=== PATIENT | female | born 1945 | race Caucasian/White ===

== ENCOUNTER 2019-08-24 16:49 | Outpatient (CLI) | payer OTHER, SELFPAY ==
--- NOTE | ~2019-08-24 | MR_ITS ---
EXAMINATION: MR knee LT wo con DATE: 08/24/2019 17:21 INDICATION: Left knee pain TECHNIQUE: Magnetic resonance imaging (MRI) of the left knee was performed without intravenous contra st. Sequences included coronal PD-weighted FSE, coronal PD-weighted FS FSE, sagittal T2-weighted FSE , sagittal PD-weighted FS FSE and axial PD weighted fat saturated FSE. COMPARISON: Left knee radiographs dated 08/12/2019 FINDINGS: Medial compartment: Medial meniscus is normal. Diffuse partial thickness cartilage loss with relatively smooth chondral s urface throughout the medial tibial plateau and weightbearing medial femoral condyle. There is mild s ubarticular edema along the posterior aspect of the medial tibial plateau suggesting otherwise indisc ernible chondral fissuring. Lateral compartment: Lateral meniscus is normal. Partial-thickness cartilage loss without degenerative subchondral changes along the posterior aspect of the lateral tibial plateau. Patellofemoral compartment: Partial-thickness cartilage loss throughout the patella with generally smooth chondral surface. There is a deep chondral fissure with tiny focus of subarticular edema at the medial aspect of the lateral patellar facet. Diffuse partial thickness cartilage loss with smooth chondral surface along the late ral trochlea. Ligaments and tendons: Anterior and posterior cruciate ligaments are normal. The medial collateral ligament and fibular eileen ateral ligament complex are normal. Patellar tendon is normal. Small enthesophytes along the anterior margin of the proximal patella. Mild distal quadriceps tendinopathy/enthesopathy without discrete te ar. The visualized medial and lateral hamstring tendons as well as the iliotibial band are normal. Fluid: Physiologic amount of fluid in the joint space. No loose osteochondral bodies identified. Prepatellar edema without discrete bursal fluid collection. Osseous/other: Bone alignment is normal. Irregular linear increased T2 signal with corresponding low signal on nonfa t saturated PD-weighted images extending obliquely from medial collateral across the anteroinferior a spect of the patella suspicious for healing nondisplaced fracture. Bone marrow signal is otherwise no rmal with no other fracture or pathologic marrow replacing process. IMPRESSION: 1. Likely healing nondisplaced fracture extending across the anteroinferior aspect of the patella. 2. 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 3. Mild distal quadriceps enthesopathy. Reviewed, dictated and finalized at location A. LE SALES EXPERT IMPRESSION: 1. Likely healing nondisplaced fracture extending across the anteroinferior asp ect of the patella. 2. 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 3. Mild distal quadriceps enthesopathy.
== END 2019-08-24 16:50 | disposition home or self-care (01) ==
PROVIDERS: Visit Provider Orthopaedic Surgery
DX: M25.562 Pain in left knee (principal); S82.092D Other fracture of left patella, subsequent encounter for closed fracture with routine healing; M17.12 Unilateral primary osteoarthritis, left knee; M94.262 Chondromalacia, left knee; M77.9 Enthesopathy, unspecified
CPT/HCPCS: 73721

== ENCOUNTER 2019-09-16 10:14 | Outpatient (CLI) | payer OTHER, SELFPAY ==
--- NOTE | ~2019-09-16 | MM_ITS ---
EXAMINATION: MM screening jenna LT w ludmila HISTORY: Screening mammogram. Previous right mastectomy for cancer. TECHNIQUE: Craniocaudal and mediolateral oblique 3-D tomosynthesis images were obtained and synthetic 2-D images were generated. CAD analysis was submitted and interpreted. COMPARISON: Comparison to multiple prior studies sequentially, with oldest reviewed study dated 08/03. BREAST PARENCHYMAL COMPOSITION: Breast composed of scattered areas of fibroglandular density. FINDINGS: There is no evidence of suspicious mass, calcification, or architectural distortion to sugg est malignancy in the left breast. There has been no suspicious interval change. IMPRESSION: 1. No mammographic evidence of malignancy. 2. Recommend routine screening mammography in one year. BI-RADS Category 1: Negative Reviewed, dictated and finalized at location A.
== END 2019-09-16 10:15 | disposition home or self-care (01) ==
PROVIDERS: Visit Provider Family Medicine
DX: Z12.31 Encounter for screening mammogram for malignant neoplasm of breast (principal)
CPT/HCPCS: 77063; 77067

== ENCOUNTER 2019-09-16 14:15 | Outpatient (CLI) | payer OTHER, SELFPAY ==
[2019-09-16 14:28] LABS: Basophils Percent Auto 0.4 % (0.2-1.2); Eosinophils Absolute Auto 0.5 K/mm3 (0-0.3); Eosinophils Percent Auto 6.9 % (0-4.4); Hematocrit 40.7 % (37.0-47.0); Hemoglobin 12.8 g/dL (12.0-15.0); Immature Granulocyte Absolute 0.02 K/mm3 (0.00-0.031); Immature Granulocyte Percent A 0.3 % (0-0.5); Lymphocytes Percent Auto 21.6 % (18.3-44.2); Mean Corpuscular HGB Conc 31.4 g/dl (32-36); Mean Corpuscular Hemoglobin 25.8 pg (26-34); Mean Corpuscular Volume 81.9 fl (80-100); Mean Platelet Volume 8.7 fl (7.4-10.4); Monocytes Absolute Auto 0.8 K/mm3 (0.1-0.6); Monocytes Percent Auto 9.8 % (2.6-8.5); Neutrophils Absolute Auto 4.8 K/mm3 (1.3-6.7); Platelet Count Result 311 k/mm3 (150-375); Red Blood Count 4.97 M/mm3 (4.2-5.4); Red Cell Distribution Width 12.5 % (11.5-14.5); White Blood Count 7.9 K/mm3 (4.5-10.0)
[2019-09-16 15:59] LABS: Alanine Aminotransferase 30 U/L (4-35); Albumin Level 4.6 g/dL (3.5-5.1); Alkaline Phosphatase 101 U/L (38-126); Aspartate Amino Transferase 36 U/L (14-36); Bilirubin,Total 0.2 mg/dL (0.2-1.3); Blood Urea Nitrogen 12 mg/dL (7-17); Calcium 9.6 mg/dL (8.4-10.2); Carbon Dioxide 29 mmol/L (22-30); Chloride 95 mmol/L (98-107); Estimated Glomerular Filt Rate > 60; Glucose 98 mg/dL (65-105); Potassium 4.5 mmol/L (3.4-5.0); Sodium 135 mmol/L (137-145)
[2019-09-18 04:22] LABS: CA 27.29 16 U/mL (<38)
== END 2019-09-16 14:16 | disposition home or self-care (01) ==
LOC: ANHLAB 14:20
PROVIDERS: Visit Provider Internal Medicine Hematology & Oncology
DX: C50.911 Malignant neoplasm of unspecified site of right female breast (principal); Z17.0 Estrogen receptor positive status [ER+]
CPT/HCPCS: 36415; 80053; 85025; 86300

== ENCOUNTER 2019-11-25 11:32 | Outpatient (CLI) | payer OTHER, SELFPAY ==
[2019-11-25 13:13] LABS: Alanine Aminotransferase 35 U/L (4-35); Aspartate Amino Transferase 49 U/L (14-36)
== END 2019-11-25 11:33 | disposition home or self-care (01) ==
LOC: ANHLAB 11:34
PROVIDERS: PCP Family Medicine; Visit Provider Podiatrist Foot & Ankle Surgery
DX: B35.1 Tinea unguium (principal)
CPT/HCPCS: 36415; 84450; 84460

== ENCOUNTER 2020-02-12 08:40 | Outpatient (CLI) | payer OTHER, SELFPAY ==
--- NOTE | ~2020-02-12 | DEXA_ITS ---
Bone Density Report Name: Ethel Chang Age: 74 Sex: Female Ethnicity: White Date of : 1945 Indication: osteopenia; height loss; cancer; Referring Provider: JOEL FELDMAN Study: Bone densitometry was performed. Exam Date: February 12, 2020 Accession number: [id number] Bone Density: Region BMD T-score Z-score Classification AP Spine (L1-L4) 0.897 -1.4 0.9 Osteopenia Femoral Neck (Left) 0.555 -2.7 -0.7 Osteoporosis Total Hip (Left) 0.839 -0.8 0.8 Normal Total Hip Bilateral Avg 0.804 -1.1 0.5 Osteopenia Femoral Neck (Right) 0.659 -1.7 0.2 Osteopenia Total Hip (Right) 0.768 -1.4 0.2 Osteopenia World Health Organization criteria for BMD impression classify patients as: Normal (T-score at or above -1.0), Osteopenia (T-score between -1.0 and -2.5), or Osteoporosis (T-score at or below -2.5). 10-year Fracture Risk: FRAX not reported because: Some T-score for Spine Total or Hip Total or Femoral Neck at or below -2.5 Previous Exams: Region Exam Age BMD T-score BMD Change BMD Change Date g/cm2 vs Baseline vs Previous AP Spine(L1-L4) 02/12/2020 74 0.897 -1.4 -0.190(-17.5%) -0.026(-2.8%)* 04/29/2016 71 0.923 -1.1 -0.164(-15.1%) -0.017(-1.8%)# 01/05/2013 67 0.940 -1.0 -0.147(-13.6%) -0.147(-13.6%) 03/20/2010 64 1.087 0.4 Total Hip(Left) 02/12/2020 74 0.839 -0.8 -0.110(-11.6%) -0.056(-6.2%)* 04/29/2016 71 0.895 -0.4 -0.055(-5.7%)# -0.048(-5.1%)# 01/05/2013 67 0.942 0.0 -0.007(-0.7%)# -0.007(-0.7%)# 03/20/2010 64 0.949 0.1 Total Hip(Right) 02/12/2020 74 0.768 -1.4 -0.087(-10.1%) -0.060(-7.2%)* 04/29/2016 71 0.828 -0.9 -0.027(-3.1%)# -0.035(-4.1%)# 01/05/2013 67 0.863 -0.6 0.008(1.0%)# 0.008(1.0%)# 03/20/2010 64 0.855 -0.7 *Denotes significance at 95% confidence level, LSC for AP Spine = 0.022 g/cm2, LSC for Total Hip = 0.027 g/cm2 Clinical Information Provided by Patient: Has used the following medications: Calcium Has the following medical conditions: Cancer Patient maximum height was 63 Menopause Age: 56 No regular weight bearing exercise Drinks caffeinated beverages Onset of menses at age 18 Number of children 3 Impression: The patient has osteoporosis, based on the Left Femoral Neck T-score. The BMD for the AP Spine(L1-L4) decreased, changing by -2.8% since the last DXA exam. The BMD for the Total Hip(Left) decreased, changing by -6.2% since the last DXA exam. The BMD f
== END 2020-02-12 08:41 | disposition home or self-care (01) ==
LOC: ANHIMG 08:55
PROVIDERS: PCP Family Medicine; Visit Provider Family Medicine
DX: M85.80 Other specified disorders of bone density and structure, unspecified site (principal); Z78.0 Asymptomatic menopausal state
CPT/HCPCS: 77080

== ENCOUNTER 2020-03-17 09:42 | Outpatient (CLI) | payer OTHER, SELFPAY ==
[2020-03-17 09:59] LABS: Basophils Percent Auto 0.5 % (0.2-1.2); Eosinophils Absolute Auto 0.3 K/mm3 (0-0.3); Hematocrit 39.3 % (37.0-47.0); Hemoglobin 12.6 g/dL (12.0-15.0); Immature Granulocyte Absolute 0.02 K/mm3 (0.00-0.031); Immature Granulocyte Percent A 0.3 % (0-0.5); Lymphocytes Absolute Auto 1.27 K/mm3 (0.9-3.2); Lymphocytes Percent Auto 20.5 % (18.3-44.2); Mean Corpuscular HGB Conc 32.1 g/dl (32-36); Mean Corpuscular Hemoglobin 25.6 pg (26-34); Mean Corpuscular Volume 79.7 fl (80-100); Mean Platelet Volume 8.6 fl (7.4-10.4); Monocytes Absolute Auto 0.7 K/mm3 (0.1-0.6); Neutrophils Absolute Auto 3.9 K/mm3 (1.3-6.7); Neutrophils Percent Auto 62.7 % (45.5-73.1); Platelet Count Result 245 k/mm3 (150-375); Red Blood Count 4.93 M/mm3 (4.2-5.4); White Blood Count 6.2 K/mm3 (4.5-10.0)
[2020-03-17 11:20] LABS: Alanine Aminotransferase 35 U/L (4-35); Albumin Level 4.6 g/dL (3.5-5.1); Alkaline Phosphatase 98 U/L (38-126); Anion Gap 10 mmol/L (8-16); Aspartate Amino Transferase 40 U/L (14-36); Bilirubin,Total 0.4 mg/dL (0.2-1.3); Blood Urea Nitrogen 13 mg/dL (7-17); Calcium 9.3 mg/dL (8.4-10.2); Carbon Dioxide 28 mmol/L (22-30); Chloride 96 mmol/L (98-107); Estimated Glomerular Filt Rate > 60; Glucose 93 mg/dL (65-105); Potassium 3.8 mmol/L (3.4-5.0); Sodium 134 mmol/L (137-145)
== END 2020-03-17 09:43 | disposition home or self-care (01) ==
PROVIDERS: PCP Family Medicine; Visit Provider Internal Medicine Hematology & Oncology
DX: C50.911 Malignant neoplasm of unspecified site of right female breast (principal); Z17.0 Estrogen receptor positive status [ER+]
CPT/HCPCS: 36415; 80053; 85025

== ENCOUNTER → 2020-08-17 13:24 | Outpatient (CLI) | payer OTHER, SELFPAY ==
--- NOTE | ~2020-08-17 | CT_ITS ---
EXAMINATION: CT lung screening EXAM DATE: 08/17/2020 14:03 INDICATION: Z87.891 - Personal history of nicotine dependence. Breast cancer. TECHNIQUE: Spiral low dose CT of the chest without contrast. Axial, coronal and sagittal images were reviewed. The dose-length product (DLP) for this examination was 92.36 mGy-cm. The exposure was ta ilored according to patient size (auto mA exposure control), and iterative reconstruction (ASIR) was used as additional dose reduction technique. There is no prior study for comparison. FINDINGS: Mild to moderate emphysema and hyperinflation. Basilar mild interlobular septal thickening , possible mild interstitial lung disease. No suspicious pulmonary nodules. Tracheobronchial tree is patent. There is no mediastinal, hilar or axillary lymphadenopathy. There are no pleural or gina cardial effusions. There is no pneumothorax. Heart normal in size. There is lipomatous hypertroph y of the interatrial septum. There is moderate coronary arterial calcification, arterial sclerosis. T here is small sliding gastroesophageal hiatal hernia. Upper abdomen is unremarkable. There is moder ate thoracic spondylosis without osteoblastic or osteolytic lesions identified. There are old right r ib fractures. Right axillary surgical clips. IMPRESSION: Lung-RADS category 1, negative (<1%chance of malignancy); recommend continued LDCT screen ing in 1 year. Reviewed, dictated and finalized at location B. DROMAT WORKER IMPRESSION: Lung-RADS category 1, negative (<1%chance of malignancy); recommend continued LDCT screening in 1 year.
== END ==
PROVIDERS: PCP Family Medicine; Visit Provider Family Medicine
DX: Z12.2 Encounter for screening for malignant neoplasm of respiratory organs (principal); Z87.891 Personal history of nicotine dependence
CPT/HCPCS: 71271

== ENCOUNTER 2020-09-01 09:04 | Outpatient (CLI) | payer OTHER, SELFPAY ==
--- NOTE | 2020-09-01 16:37 | P.PCNPFT_ITS ---
PFT Interpretation This is a pulmonary function test with pre and post-bronchodilator spirometry, plethysmography and diffusing capacity. The test was performed and results interpreted in accordance with the 2019 and 2005 ATS/ERS Task Force guidelines respectively using the Global Lung Function Initiative-2012 reference equations. Patient demonstrated good effort and c ooperation. Reproducibility criteria were met. The quality of the pre bronchodilator spirometry maneuver was Grade A and post bronchodilator spirometry maneuver was Grade A. Findings: Spirometry: There is decreased maximal expiratory airflow at all lung volumes with a concave expiratory flow tracing. The pre bronchodilator FVC is 1.84 L, 72% predicted. The pre bronchodilator FEV1 is 1.30 L, 66% predicted. The FEV1: FVC ratio is 71%. The post bronchodilator FVC is 1.78 L, representing a 4% decrease. The post bronchodilator FEV1 is 1.30 L, representing no change. Plethysmography: The total lung capacity is 3.46 L, 73% predicted. The functional residual capacity is 1.72 L, 64% predicted. The residual volume is 1.62 L, 76% predicted. Diffusing capacity: The absolute diffusion capacity is 11.7, 60% predicted. The diffusing capacity corrected for alveolar volume is 4.16, 96% predicted. Impression: There is a combined obstructive and restrictive ventilatory abnormality. There are no guidelines to assign the severity of obstruction and restriction with a combined abnormality. In my opinion, given the mildly concave expiratory flow tracing and mildly decreased FEV1:FVC ratio and mild restrictive abnormality I would state there is a mild obstructive abnormality and a mild restrictive abnormality resulting in a moderatley decreased FEV1. There is no significant improvement after inhaling a single dose of albuterol. The diffusing capacity is moderately decreased but normalizes when corrected for alveolar volume. There are no prior studies for comparison
== END 2020-09-01 09:05 | disposition home or self-care (01) ==
PROVIDERS: PCP Family Medicine; Visit Provider Family Medicine
DX: R06.2 Wheezing (principal); R94.2 Abnormal results of pulmonary function studies
CPT/HCPCS: 94060; 94726; 94729

== ENCOUNTER 2021-02-14 08:24 | Outpatient (CLI) | payer OTHER, SELFPAY ==
--- NOTE | ~2021-02-14 | MM_ITS ---
EXAMINATION: MM screening jenna LT w ludmila HISTORY: Screening left mammogram, history of right mastectomy. TECHNIQUE: Craniocaudal and mediolateral oblique 3-D tomosynthesis images were obtained and synthetic 2-D images were generated. CAD analysis was submitted and interpreted. COMPARISON: 09/16/2019, 04/07/2019, 02/28/2017 BREAST PARENCHYMAL COMPOSITION: There are scattered areas of fibroglandular density. FINDINGS: There is no evidence of suspicious mass, calcification, or architectural distortion to sugg est malignancy. There has been no suspicious interval change. IMPRESSION: 1. No mammographic evidence of malignancy. 2. Recommend routine screening mammography in one year. BI-RADS Category 1: Negative Reviewed, dictated and finalized at location A.
== END 2021-02-14 08:25 | disposition home or self-care (01) ==
LOC: ANHIMG 08:29
PROVIDERS: PCP Family Medicine; Visit Provider Family Medicine
DX: Z12.31 Encounter for screening mammogram for malignant neoplasm of breast (principal)
CPT/HCPCS: 77063; 77067

== ENCOUNTER 2021-08-22 10:42 | Outpatient (CLI) | payer OTHER, SELFPAY ==
--- NOTE | ~2021-08-22 | XR_ITS ---
XR lumbar spine min 4V DATE: 08/22/2021 11:23 INDICATION: Low back pain TECHNIQUE: AP, lateral, bilateral oblique and coned lateral lumbosacral views COMPARISON: None FINDINGS: There is diffuse osteopenia. There is prominent degenerative spurring in the lower thoracic spine. There is degenerative change at the apophyseal joints particularly L4-5 and L5-S1 with associated gra de 1 anterolisthesis at L4-5. There is moderately severe degenerative disc disease at L5-S1. No fracture or bone destruction is evident. The included lower thoracic and lumbar pedicles are intac t. The sacroiliac joints appear normal. There is extensive calcification of the abdominal aorta and common iliac arteries without apparent ab dominal aortic aneurysm. IMPRESSION: Osteopenia Degenerative changes Reviewed, dictated and finalized at location A. N YARN DRIER
--- NOTE | ~2021-08-22 | CT_ITS ---
EXAMINATION: CT lung screening DATE: 08/22/2021 11:14 INDICATION: Cough. Personal history of tobacco dependence. TECHNIQUE: Computed tomography (CT) of the chest was performed without intravenous contrast. The dose -length product was 140.41 mGy-cm. Automated exposure control and iterative reconstruction technique were employed. COMPARISON: CT dated 08/17/2020 FINDINGS: No significant pleural or pericardial effusion. There is atherosclerosis of the aorta and c oronary arteries. Heart size is normal. No thoracic lymphadenopathy. Upper abdomen is unremarkable. T here is emphysema. There are a few small 1-2 mm nodules in the left upper lobe, best seen on coronal reconstructions, likely benign. No endobronchial lesions. No pneumothorax. No focal airspace consolid ation. Mild thoracic spondylosis with accentuated kyphosis. There is a healed right clavicle fracture . IMPRESSION: 1. Lung-RADS category 2: Benign appearance or behavior. Continue annual screening with noncontrast lo w-dose chest CT in 12 months. Reviewed, dictated and finalized at location A. IDING JUDGE IMPRESSION: 1. Lung-RADS category 2: Benign appearance or behavior. Continue annual screeni ng with noncontrast low-dose chest CT in 12 months.
== END 2021-08-22 10:43 | disposition home or self-care (01) ==
PROVIDERS: PCP Family Medicine; Visit Provider Nurse Practitioner Gerontology
DX: Z12.2 Encounter for screening for malignant neoplasm of respiratory organs (principal); M54.50 Low back pain, unspecified; M85.88 Other specified disorders of bone density and structure, other site; J44.9 Chronic obstructive pulmonary disease, unspecified; Z87.891 Personal history of nicotine dependence
CPT/HCPCS: 71271; 72110

== ENCOUNTER 2021-10-15 16:41 | Outpatient (CLI) | payer OTHER, SELFPAY ==
--- NOTE | ~2021-10-15 | XR_ITS ---
XR knee RT min 4V DATE: 10/15/2021 17:08 INDICATION: Injury 2 weeks ago. Pain under patella. TECHNIQUE: 4 views COMPARISON: None FINDINGS: There is moderate loss of medial compartment joint space. Mild superior pole patellar enthesopathy at quadriceps tendon insertion. No fracture or dislocation. No radiopaque intra-articular loose body or chondrocalcinosis. There is diffuse osteopenia. Small suprapatellar knee joint effusion is suggested. IMPRESSION: Small knee joint effusion is suggested Moderate loss of medial compartment joint space height Reviewed, dictated and finalized at location A.
== END 2021-10-15 16:42 | disposition home or self-care (01) ==
LOC: ANHIMG 16:48
PROVIDERS: PCP Family Medicine; Visit Provider Nurse Practitioner Gerontology
DX: M25.569 Pain in unspecified knee (principal); W19.XXXA Unspecified fall, initial encounter; M25.461 Effusion, right knee
CPT/HCPCS: 73564

== ENCOUNTER 2022-07-31 09:30 | Outpatient (CLI) | payer OTHER, SELFPAY ==
--- NOTE | ~2022-07-31 | MM_ITS ---
EXAMINATION: MM screening jenna LT w ludmila HISTORY: Screening mammogram; status post right mastectomy TECHNIQUE: Craniocaudal and mediolateral oblique 3-D tomosynthesis images were obtained and synthetic 2-D images were generated. CAD analysis was submitted and interpreted. COMPARISON: 02/14/2021, 09/16/2019, 03/28/2018 left screening mammogram examinations BREAST PARENCHYMAL COMPOSITION: There are scattered areas of fibroglandular density. FINDINGS: There is no evidence of suspicious mass, calcification, or architectural distortion to sugg est malignancy in either breast. There has been no suspicious interval change. IMPRESSION: 1. No mammographic evidence of malignancy. 2. Recommend routine screening mammography in one year. BI-RADS Category 1: Negative Reviewed, dictated and finalized at location A. CAL FRONT DESK COORDINATOR
--- NOTE | ~2022-07-31 | DEXA_ITS ---
Bone Density Report Name: JUAN MIGUEL FRIED Age: 77 Sex: Female Ethnicity: White Date of : 1945 Indication: osteopenia; height loss; postmenopausal Referring Provider: KIERRA VASQUES Study: Bone densitometry was performed. Exam Date: July 31, 2022 Accession number: [id number] Bone Density: Region BMD T-score Z-score Classification AP Spine(L1-L4) 0.907 -1.3 1.1 Osteopenia Femoral Neck (Left) 0.562 -2.6 -0.5 Osteoporosis Total Hip (Left) 0.857 -0.7 1.1 Normal Femoral Neck (Right) 0.577 -2.5 -0.4 Osteoporosis Total Hip (Right) 0.805 -1.1 0.7 Osteopenia Total Hip Mean 0.831 -0.9 0.9 Normal World Health Organization criteria for BMD impression classify patients as: Normal (T-score at or above -1.0), Osteopenia (T-score between -1.0 and -2.5), or Osteoporosis (T-score at or below -2.5). 10-year Fracture Risk: FRAX not reported because: Some T-score for Spine Total or Hip Total or Femoral Neck at or below -2.5 Previous Exams: Region Exam Age BMD T-score BMD Change BMD Change Date g/cm2 vs Baseline vs Previous AP Spine (L1-L4) 07/31/2022 77 0.907 -1.3 -0.033 (-3.5%) 0.010 (1.1%) 02/12/2020 74 0.897 -1.4 -0.043 (-4.5%) -0.026 (-2.8%) 04/29/2016 71 0.923 -1.1 -0.017 (-1.8%) -0.017 (-1.8%) 01/05/2013 67 0.940 -1.0 Total Hip(Left) 07/31/2022 77 0.857 -0.7 -0.086 (-9.1%) 0.018 (2.1%) 02/12/2020 74 0.839 -0.8 -0.104 (-11.0% -0.056 (-6.2%) 04/29/2016 71 0.895 -0.4 -0.048 (-5.1%) -0.048 (-5.1%) 01/05/2013 67 0.942 0.0 Total Hip(Right) 07/31/2022 77 0.805 -1.1 -0.058 (-6.7%) 0.037 (4.8%)* 02/12/2020 74 0.768 -1.4 -0.095 (-11.0% -0.060 (-7.2%) 04/29/2016 71 0.828 -0.9 -0.035 (-4.1%) -0.035 (-4.1%) 01/05/2013 67 0.863 -0.6 *Denotes significance at 95% confidence level, LSC for AP Spine = 0.022 g/cm2, LSC for Total Hip = 0.027 g/cm2 # Denotes dissimilar scan types or analysis methods Clinical Information Provided by Patient: Has used the following medications: Vitamin D, Calcium Patient maximum height was 64 No regular weight bearing exercise Drinks caffeinated beverages Onset of menses at age 18 Number of children 3 Impression: The patient has osteoporosis, based on the Left Femoral Neck T-score. No significant bone loss was observed. Discussion: INCREASED RISK OF FRACTURE. BONE DENSITY IS UNDESIRABLY LOW AT ONE OR MORE SKELETAL SITES, CONSISTENT WITH PO
== END 2022-07-31 09:31 | disposition home or self-care (01) ==
LOC: ANHIMG 09:33
PROVIDERS: PCP Family Medicine; Visit Provider Physician Assistant
DX: Z12.31 Encounter for screening mammogram for malignant neoplasm of breast (principal); Z78.0 Asymptomatic menopausal state; M85.89 Other specified disorders of bone density and structure, multiple sites; M81.0 Age-related osteoporosis without current pathological fracture
CPT/HCPCS: 77063; 77067; 77080

== ENCOUNTER 2022-08-26 14:58 | Outpatient (CLI) | payer OTHER, SELFPAY ==
--- NOTE | ~2022-08-26 | CT_ITS ---
EXAMINATION: CT lung screening DATE: 08/26/2022 15:22 INDICATION: CT lung screen TECHNIQUE: Computed tomography (CT) of the chest was performed without intravenous contrast. Addition al 3D reconstructions utilizing coronal maximum intensity projection (MIP) were performed. Automated exposure control and iterative reconstruction technique were employed. The dose-length product was 13 8.73 mGy-cm. COMPARISON: 07/25/2021 FINDINGS: Unchanged mild discoid atelectasis/scarring the anterior segment of the right upper lobe. No interval change in a couple 1-2 mm nodules in the left upper lobe. No new or enlarging pulmonary nodules iden tified. No pneumonia, pulmonary edema or pleural effusion. Heart size is normal. Atherosclerotic gerardo nary artery calcification. No pericardial effusion. Thoracic aorta is normal in caliber. No pathologi saba enlarged thoracic lymphadenopathy. Status post right mastectomy with surgical clips right axill leonor lymph node dissection at the right axilla. Small sliding-type hiatal hernia. Moderate thoracic sp ondylosis with mild kyphosis. Chronic mild anterior wedging of a few mid thoracic vertebral bodies. O ld healed right clavicle fracture. IMPRESSION: 1. Lung-RADS category 2: Benign appearance or behavior. Continue annual screening with noncontrast lo w-dose chest CT in 12 months. Reviewed, dictated and finalized at location A. X RAY PHYSICIAN IMPRESSION: 1. Lung-RADS category 2: Benign appearance or behavior. Continue annual screeni ng with noncontrast low-dose chest CT in 12 months.
== END 2022-08-26 14:59 | disposition home or self-care (01) ==
PROVIDERS: PCP Family Medicine; Visit Provider Nurse Practitioner Gerontology
DX: Z12.2 Encounter for screening for malignant neoplasm of respiratory organs (principal); Z87.891 Personal history of nicotine dependence
CPT/HCPCS: 71271

== ENCOUNTER 2022-09-16 08:49 | Outpatient (CLI) | payer OTHER, SELFPAY ==
[2022-09-16 10:26] LABS: Basophils Percent Auto 0.6 % (0.2-1.2); Eosinophils Absolute Auto 0.4 K/mm3 (0-0.3); Eosinophils Percent Auto 5.6 % (0-4.4); Hematocrit 37.2 % (37.0-47.0); Hemoglobin 11.6 g/dL (12.0-15.0); Immature Granulocyte Absolute 0.02 K/mm3 (0.00-0.031); Immature Granulocyte Percent A 0.3 % (0-0.5); Lymphocytes Absolute Auto 1.36 K/mm3 (0.9-3.2); Lymphocytes Percent Auto 21.8 % (18.3-44.2); Mean Corpuscular HGB Conc 31.2 g/dl (32-36); Mean Corpuscular Volume 83.2 fl (80-100); Mean Platelet Volume 9.5 fl (7.4-10.4); Monocytes Absolute Auto 0.7 K/mm3 (0.1-0.6); Monocytes Percent Auto 10.6 % (2.6-8.5); Neutrophils Absolute Auto 3.8 K/mm3 (1.3-6.7); Neutrophils Percent Auto 61.1 % (45.5-73.1); Platelet Count Result 273 k/mm3 (150-375); Red Blood Count 4.47 M/mm3 (4.2-5.4); Red Cell Distribution Width 13.3 % (11.5-14.5); White Blood Count 6.2 K/mm3 (4.5-10.0)
[2022-09-16 10:37] LABS: Alanine Aminotransferase 33 U/L (6-35); Albumin Level 4.7 g/dL (3.5-5.1); Alkaline Phosphatase 76 U/L (38-126); Anion Gap 7 mmol/L (8-16); Aspartate Amino Transferase 35 U/L (14-36); Bilirubin,Total 0.5 mg/dL (0.2-1.3); Blood Urea Nitrogen 14 mg/dL (7-17); Calcium 9.4 mg/dL (8.4-10.2); Carbon Dioxide 32 mmol/L (22-30); Chloride 97 mmol/L (98-107); Cholesterol 163 mg/dL (0-200); Estimated Glomerular Filt Rate > 60; Glucose 92 mg/dL (65-110); HDL Direct 45 mg/dL; Potassium 4.4 mmol/L (3.4-5.0); Sodium 136 mmol/L (137-145); Triglycerides 131 mg/dL (<150)
[2022-09-16 10:48] LABS: LDL Cholesterol Direct 75 mg/dL
== END 2022-09-16 08:50 | disposition home or self-care (01) ==
LOC: ANHLAB 08:51
PROVIDERS: PCP Family Medicine; Visit Provider Physician Assistant
DX: E78.2 Mixed hyperlipidemia (principal); I10 Essential (primary) hypertension
CPT/HCPCS: 36415; 80053; 80061; 85025

== ENCOUNTER 2023-08-17 09:45 | Emergency (ER) | payer OTHER, SELFPAY ==
--- NOTE | ~2023-08-17 | XR_ITS ---
XR foot LT min 3V, XR ankle LT min 3V 08/17/2023 10:21 (accession [id number]), 08/17/2023 10:20 (accession [id number]) Indication: Left ankle and foot pain after injury Procedure: 4 views left foot and 4 views left ankle Comparison: No prior studies for comparison. Findings: There is a fracture proximal aspect of the fifth metatarsal with adjacent soft tissue swell ing. Osteopenia. Mild polyarticular osteoarthritis. No foreign bodies. Lisfranc joint intact. There a re small degenerative calcaneal enthesophytes. There is a small avulsion fracture anterior superior m argin of the talus. Impression: 1: Fracture proximal base of the left fifth metatarsal. 2: Avulsion fracture anterior superior margin of the talus, best seen on lateral view. Reviewed, dictated and finalized at location A. RINTENDENT OF GENERATION Impression: 1: Fracture proximal base of the left fifth metatarsal. 2: Avulsion fracture anterior superior margin of the talus, best seen on latera l view. Impression: 1: Fracture proximal base of the left fifth metatarsal. 2: Avulsion fracture anterior superior margin of the talus, best seen on latera l view.
--- NOTE | 2023-08-17 10:02 | ED.LOWEXIN ---
HPI - Extremity Injury (Lower) General Chief Complaint: Extremity Injury, Lower Stated Complaint: FALL/L FOOT INJURY Time Seen by Provider: 08/17/23 10:02 Source: patient Mode of arrival: ambulatory Limitations: no limitations History of Present Illness HPI Narrative: Ethel is a 78-year-old female patient presenting to the clinic today with complaints of a left foot/ankle injury after rolling her ankle last night when getting out of bed to go the bathroom. She reports she is having pain to the lateral ankle and foot. Pain is worse with ambulation. Related Data Home Medications Medication Instructions Recorded Confirmed aspirin 81 mg tablet,delayed 81 mg PO DAILY 08/13/19 09/12/22 release (Adult Aspirin Regimen) calcium carbonate-vitamin D3 PO 08/13/19 09/12/22 cetirizine [Zyrtec] PO 08/13/19 09/12/22 guar gum [Benefiber (guar gum)] PO 08/13/19 09/12/22 lactobacillus combination no.8 PO 08/13/19 09/12/22 [Adult Probiotic] magnesium 250 mg tablet 250 mg PO DAILY 08/13/19 09/12/22 melatonin 10 mg capsule PO 08/13/19 09/12/22 multivitamin 1 tablet PO DAILY 08/13/19 09/12/22 omega-3 fatty acids 1,000 mg 1,000 mg PO DAILY 08/13/19 09/12/22 capsule (Fish Oil Concentrate) vit C-E-zinc [id number] PO 08/13/19 09/12/22 [[facility]] Allergies Allergy/AdvReac Type Severity Reaction Status Date / Time No Known Allergies Allergy Verified 08/17/23 10:01 Review of Systems Review of Systems: Pertinent positives per HPI. Patient denies any fever, chills, rash, headache, visual changes, dizziness, cough, runny nose, sore throat, shortness of breath, chest pain, palpitations, nausea, vomiting, diarrhea, constipation, abdominal pain, or any urinary issues. [facility] Past Medical History Medical History Carotid atherosclerosis Cerebral atherosclerosis Chronic GERD COPD (chronic obstructive pulmonary disease) Dizziness Essential (primary) hypertension History of breast cancer Meniere's disease of both ears Mixed hyperlipidemia Neuropathy Osteoporosis Peripheral neuropathy Seasonal allergies Vertigo Vision abnormalities Surgical History Surgical History History of right total mastectomy History of tubal ligation 1974 Family History Family History Sibling Acute myocardial infarction Hypertension Other Family history of cardiovascular disease Social History Social History Social History: Smoking packs per day: 2.5 Smoking cigarettes per day: 50.0 Years smoked: 40 Smoking pack-years: 100.00 Smoking status: Never smoker Tobacco type: cigarettes Second hand tobacco smoke exposure: No Smoking end date: 06/23/04 Alcohol intake: never Substance use: never Substance use type: does not use Living arrangements: with family Occupation/Education: retired Gender identity (if verbalized by the patient): Female Sexual Orientation (if Verbalized by the Patient): Straight or Heterosexual Comments At the time of my signature, I reviewed and agree with the nursing past medical, surgical, social, and family history. There is no relevant family history pertinent to the patient complaint. Exam Narrative: General: Well-developed, well nourished, in no apparent distress Head: Normocephalic, atraumatic. Cardio: Regular rate and rhythm, s1 and s2 normal, no murmur appreciated. Resp: Clear to auscultation bilaterally, no rhonchi, rales, wheezing or rubs. Musculoskeletal: No deformity, tender to palpation over the lateral left ankle and over the lateral 5th and 4th metatarsal, bruising noted along the left 5th metatarsal and the left lateral ankle, pain with dorsal and plantar flexion against resistance, muscle strength strong an
[2023-08-17 10:07] VITALS: BP 140/70; PULSE 78; RESP 16; TEMP 36.4; O2SAT 98
== END 2023-08-17 11:09 | disposition home or self-care (01) ==
PROVIDERS: Emergency Provider Nurse Practitioner Family; PCP Family Medicine
DX: S92.155A Nondisplaced avulsion fracture (chip fracture) of left talus, initial encounter for closed fracture (principal); S92.355A Nondisplaced fracture of fifth metatarsal bone, left foot, initial encounter for closed fracture; X50.9XXA Other and unspecified overexertion or strenuous movements or postures, initial encounter; I67.2 Cerebral atherosclerosis; J44.9 Chronic obstructive pulmonary disease, unspecified; I10 Essential (primary) hypertension; E78.2 Mixed hyperlipidemia; M81.0 Age-related osteoporosis without current pathological fracture; G62.9 Polyneuropathy, unspecified; Z85.3 Personal history of malignant neoplasm of breast; K21.9 Gastro-esophageal reflux disease without esophagitis; Z90.11 Acquired absence of right breast and nipple; Z87.891 Personal history of nicotine dependence
CPT/HCPCS: 29515; 73610; 73630; 99214; G0463

== ENCOUNTER 2024-04-03 09:26 | Outpatient (CLI) | payer OTHER, SELFPAY ==
[2024-04-03 09:59] LABS: Basophils Percent Auto 0.5 % (0.2-1.2); Eosinophils Absolute Auto 0.5 K/mm3 (0-0.3); Eosinophils Percent Auto 8.3 % (0-4.4); Hematocrit 39.8 % (37.0-47.0); Immature Granulocyte Absolute 0.02 K/mm3 (0.00-0.031); Immature Granulocyte Percent A 0.3 % (0-0.5); Lymphocytes Absolute Auto 1.62 K/mm3 (0.9-3.2); Lymphocytes Percent Auto 24.8 % (18.3-44.2); Mean Corpuscular HGB Conc 30.2 g/dl (32-36); Mean Corpuscular Hemoglobin 25.6 pg (26-34); Mean Corpuscular Volume 84.9 fl (80-100); Mean Platelet Volume 9.2 fl (7.4-10.4); Monocytes Absolute Auto 0.7 K/mm3 (0.1-0.6); Monocytes Percent Auto 10.3 % (2.6-8.5); Neutrophils Absolute Auto 3.7 K/mm3 (1.3-6.7); Neutrophils Percent Auto 55.8 % (45.5-73.1); Platelet Count Result 288 k/mm3 (150-375); Red Blood Count 4.69 M/mm3 (4.2-5.4); Red Cell Distribution Width 13.9 % (11.5-14.5); White Blood Count 6.5 K/mm3 (4.5-10.0)
[2024-04-03 10:59] LABS: Alanine Aminotransferase 33 U/L (6-35); Albumin Level 4.5 g/dL (3.5-5.1); Alkaline Phosphatase 81 U/L (38-126); Anion Gap 10 mmol/L (4-12); Aspartate Amino Transferase 45 U/L (14-36); Bilirubin,Total 0.7 mg/dL (0.2-1.3); Blood Urea Nitrogen 18 mg/dL (7-17); Calcium 9.8 mg/dL (8.4-10.2); Carbon Dioxide 28 mmol/L (22-30); Chloride 100 mmol/L (98-107); Cholesterol 176 mg/dL (0-200); Estimated Glomerular Filt Rate > 60; Glucose 112 mg/dL (65-110); HDL Direct 40 mg/dL; Potassium 4.5 mmol/L (3.4-5.0); Sodium 138 mmol/L (137-145); Triglycerides 155 mg/dL (<150)
[2024-04-03 11:09] LABS: LDL Cholesterol Direct 82 mg/dL
== END 2024-04-03 09:27 | disposition home or self-care (01) ==
LOC: ANHLAB 09:29
PROVIDERS: PCP Family Medicine; Visit Provider Physician Assistant
DX: G62.9 Polyneuropathy, unspecified (principal); I10 Essential (primary) hypertension; E78.2 Mixed hyperlipidemia; K21.9 Gastro-esophageal reflux disease without esophagitis; I65.29 Occlusion and stenosis of unspecified carotid artery
CPT/HCPCS: 36415; 80053; 80061; 85025

== ENCOUNTER 2024-08-19 16:38 | Outpatient (CLI) | payer OTHER, SELFPAY ==
[2024-08-19 17:44] LABS: Alanine Aminotransferase 30 U/L (6-35); Aspartate Amino Transferase 46 U/L (14-36)
== END 2024-08-19 16:39 | disposition home or self-care (01) ==
LOC: ANHLAB 16:40
PROVIDERS: PCP Family Medicine; Visit Provider Podiatrist Foot & Ankle Surgery
DX: B35.1 Tinea unguium (principal)
CPT/HCPCS: 36415; 84450; 84460

== ENCOUNTER 2024-08-26 07:40 | Outpatient (CLI) | payer OTHER, SELFPAY ==
--- OUTSIDE RECORDS SUMMARY | 2024-08-26 07:46 | XMS_ITS | Clinical Summary ---
Author Organization [facility] Hattie Noble Address [address] [place] [address] Care Team Providers Care Collections Analyst Name Role Phone Carla Campbell MD Primary Care Provider +1- [phone] Allergies No known active allergies Medications lovastatin (MEVACOR) 40 mg tablet Take 40 mg by mouth daily with supper. Active sertraline (ZOLOFT) 50 mg tablet Take 50 mg by mouth daily. Active gabapentin (NEURONTIN) 300 mg capsule Take 300 mg by mouth 3 times daily. Active triamterene-hyd roCHLOROthiazid e (MAXZIDE) 75-50 mg tablet Take 1 Tablet by mouth daily. Active hydrocortisone (HYTONE) 2.5 % Cream Apply to affected area 2 times daily. Active raNITIdine (ZANTAC) 150 mg tablet Take 150 mg by mouth 2 times daily. Active melatonin 5 mg Tablet Take 10 mg by mouth nightly as needed. Active collagenase (SANTYL) 250 unit/gram Ointment Apply 1,000 Grams to affected area daily. Active omeprazole (PriLOSEC) 20 mg Capsule, Delayed Release(E.C.) Take 20 mg by mouth daily. Active meclizine (ANTIVERT) 25 mg tablet Take 25 mg by mouth 3 times daily as needed for Dizziness. Active cetirizine (ZyrTEC) 10 mg tablet Take 10 mg by mouth daily. Active calcium as carbonate (CORAL CALCIUM) 1,000 mg (390 mg elemental) Tablet Take 750 mg by mouth. Active aspirin (ECOTRIN EC) 81 mg Tablet, Delayed Release (E.C.) Take 81 mg by mouth daily. Active acetaminophen (TYLENOL) 500 mg tablet Take 500 mg by mouth every 6 hours as needed. Active vitamin A-vitamin C-vitamin E (OCUVITE) Tablet Take 1 Tablet by mouth daily. Active fish oil-omega-3 fatty acids 340-1,000 mg Capsule Take 1 Capsule by mouth daily. Active guar gum (BENEFIBER) Packet Take 1 Packet by mouth daily. Active Saccharomyces boulardii (FLORASTOR) 250 mg Capsule Take by mouth. Active magnesium oxide 500 mg Capsule Take 250 mg by mouth daily. Active Active Problems Problem Noted Date Diagnosed Date History of invasive breast cancer 09/16/2019 Family History Medical History Relation Name Comments Heart Disease Brother 1 Heart Disease Brother 2 Heart Disease Father Heart Disease Mother Relation Name Status Comments Brother 1 Alive Brother 2 Alive Daughter Alive Father Mother Sister 1 Alive Sister 2 Alive Sister 3 Alive Son 1 Alive Son 2 Alive Social History Tobacco Use Types Packs/Day Years Used Date Smoking Tobacco: Former Cigarettes 2.5 25 0 07/04/1979 - 07/04/2004 Smokeless Tobacco: Never Tobacco Cessation:Counseling Given: No Alcohol Use Standard Drinks/Week Comments Never 0 (1 standard drink = 0.6 oz pur e alcohol) Comments No Sex and Gender Information Value Date Recorded Sex Assigned at Not on file Legal Sex Female 12:25 PM CDT Gender Identity Not on file Sexual Orientation Not on file Last Filed Vital Signs Vital Sign Reading Time Taken Comments Blood Pressure 97/58 03/17/2020 9:10 AM CDT Pulse 77 03/17/2020 9:10 AM CDT Temperature 36.8 C (98.2 F) 03/17/2020 9:10 AM CDT Respiratory Rate - - Oxygen Saturation 98% 03/17/2020 9:10 AM CDT Inhaled Oxygen Concentration - - Weight 85.1 kg (187 lb 9.6 oz) 03/17/2020 9:10 A M CDT Height 158.8 cm (5' 2.5 ) 03/17/2020 9:10 AM CDT Body Mass Index 33.77 03/17/2020 9:10 AM CDT Plan of Treatment Health Maintenance Due Date Last Done Comments DTAP/TDAP/TD VACCINES (1 - Tdap) 1966 PNEUMOCOCCAL VACCINE 50+ YEARS (1 of 1 - PCV) 04/23/19 97 ZOSTER VACCINE (1 of 2) 1997 OSTEOPOROSIS SCREENING 2012 RSV VACCINE (60+ or ) (1 - 1-dose 75+ series) 2022 INFLUENZA VACCINE (#1) 2024 Care Teams Collections Analyst Relationship Specialty Start Date End Date Carla Campbell MD PCP - General Family Practice 09/06/19
[2024-08-26 08:10] LABS: Hematocrit 38.9 % (37.0-47.0); Mean Corpuscular HGB Conc 30.8 g/dl (32-36); Mean Corpuscular Hemoglobin 26.1 pg (26-34); Mean Corpuscular Volume 84.7 fl (80-100); Mean Platelet Volume 9.6 fl (7.4-10.4); Platelet Count Result 288 k/mm3 (150-375); Red Blood Count 4.59 M/mm3 (4.2-5.4); Red Cell Distribution Width 13.2 % (11.5-14.5); White Blood Count 6.2 K/mm3 (4.5-10.0)
[2024-08-26 08:14] LABS: Add Urine Microscopic? NO; Appearance Urine Clear (Clear); Bilirubin Urine Negative (Negative); Blood Urine Negative (Negative); Color Urine Yellow (Yellow); Glucose Urine UA Negative (Negative); Ketones Urine Negative (Negative); Leukocyte Esterase Ur Negative LEU/UL (Negative); Nitrate Urine Negative (Negative); Protein Urine Negative (Negative); Urobilinogen Urine 0.2 mg/dL (<2.0)
[2024-08-26 08:38] LABS: Hemoglobin A1C 5.7 % (<5.7)
[2024-08-26 10:57] LABS: Alanine Aminotransferase 29 U/L (6-35); Albumin Level 4.7 g/dL (3.5-5.1); Alkaline Phosphatase 69 U/L (38-126); Anion Gap 11 mmol/L (4-12); Aspartate Amino Transferase 44 U/L (14-36); Bilirubin,Total 0.6 mg/dL (0.2-1.3); Blood Urea Nitrogen 11 mg/dL (7-17); Calcium 9.5 mg/dL (8.4-10.2); Carbon Dioxide 28 mmol/L (22-30); Chloride 101 mmol/L (98-107); Cholesterol 147 mg/dL (0-200); Estimated Glomerular Filt Rate > 60; Glucose 110 mg/dL (65-110); HDL Direct 41 mg/dL; Potassium 4.2 mmol/L (3.4-5.0); Sodium 140 mmol/L (137-145); Triglycerides 104 mg/dL (<150)
[2024-08-26 11:08] LABS: LDL Cholesterol Direct 71 mg/dL
== END 2024-08-26 07:41 | disposition home or self-care (01) ==
LOC: ANHLAB 07:41
PROVIDERS: PCP Family Medicine; Visit Provider Family Medicine
DX: E78.2 Mixed hyperlipidemia (principal); I10 Essential (primary) hypertension; E78.5 Hyperlipidemia, unspecified; R53.83 Other fatigue; R73.01 Impaired fasting glucose
CPT/HCPCS: 36415; 80053; 80061; 81003; 83036; 84443; 85027

== ENCOUNTER 2024-09-08 09:33 | Outpatient (CLI) | payer OTHER, SELFPAY ==
--- NOTE | ~2024-09-08 | MM_ITS ---
EXAMINATION: MM screening jenna LT w ludmila HISTORY: Screening TECHNIQUE: Craniocaudal and mediolateral oblique 3-D tomosynthesis images were obtained and synthetic 2-D images were generated. CAD analysis was submitted and interpreted. COMPARISON: Comparison to multiple prior studies sequentially, with oldest reviewed study dated 01/10. BREAST PARENCHYMAL COMPOSITION: Not dense: There are scattered areas of fibroglandular density. FINDINGS: There is no evidence of suspicious mass, calcification, or architectural distortion to sugg est malignancy in either breast. There has been no suspicious interval change. IMPRESSION: 1. No mammographic evidence of malignancy. 2. Recommend routine screening mammography in one year. BI-RADS Category 1: Negative Reviewed, dictated and finalized at location B.
--- OUTSIDE RECORDS SUMMARY | 2024-09-08 10:39 | XMS_ITS | Clinical Summary ---
Author Organization [facility] (Formerly [facility] Hattie Noble Address [address] [place] [address] Care Team Providers Care [employer] Merchandising Coordinator Name Role Phone Carla Campbell MD Primary Care Provider +1- [phone] Allergies No known active allergies Medications lovastatin [...] 2022 INFLUENZA VACCINE (#1) 2024 Care Teams [employer]chand[employer] Coordinator Relationship Specialty Start Date End Date Carla Campbell MD PCP - General Family Practice 09/06/19
== END 2024-09-08 09:34 | disposition home or self-care (01) ==
LOC: ANHIMG 09:34
PROVIDERS: PCP Family Medicine; Visit Provider Family Medicine
DX: Z12.31 Encounter for screening mammogram for malignant neoplasm of breast (principal)
CPT/HCPCS: 77063; 77067

== ENCOUNTER 2024-09-28 10:52 | Outpatient (CLI) | payer OTHER, SELFPAY ==
--- NOTE | ~2024-09-28 | US_ITS ---
EXAMINATION: US carotid duplex BI DATE: 09/28/2024 11:58 INDICATION: Other specified symptoms signs of the circulatory and respiratory system. TECHNIQUE: Grayscale, color Doppler, and pulsed Doppler images of the cervical carotid arteries were obtained. The degree of vessel stenosis is placed in one of the following categories: normal, <50%, 5 0-69%, >=70% but less than near-occlusion, near-occlusion, or total occlusion. Note that percent sten osis relative to normal distal artery lumen diameter is indirectly measured from velocity measurement s as described by Surjit, et al. Radiology 2003; 229:340-346. COMPARISON: None. FINDINGS: RIGHT: The right common carotid artery (CCA) peak systolic velocity (PSV) is 75 cm/s. The right internal car otid artery (ICA) PSV is 178 cm/s. The right ICA end-diastolic velocity (EDV) is 33 cm/s. The right I CA/CCA PSV ratio is 2.4. Grayscale and color Doppler images yield an estimate of 50-69% diameter redu ction from plaque in the ICA. The external carotid artery (ECA) PSV is 234 cm/s. There is antegrade f low in the right vertebral artery. LEFT: The left CCA PSV is 60 cm/s. The left ICA PSV is 83 cm/s. The left ICA EDV is 23 cm/s. The left ICA/C CA PSV ratio is 1.4. Grayscale and color Doppler images yield an estimate of <50% diameter reduction from plaque in the ICA. The ECA PSV is 225 cm/s. There is antegrade flow in the left vertebral artery . IMPRESSION: 1. 50-69% stenosis in the right internal carotid artery. 2. <50% stenosis in the left internal carotid artery. Reviewed, dictated and finalized at location A.
--- OUTSIDE RECORDS SUMMARY | 2024-09-28 12:31 | XMS_ITS | Clinical Summary ---
Author Organization [facility] Hattie Noble Address [address] [place] [address] Care Team Providers Care Director Of Maternity Services Name Role Phone Carla Campbell MD Primary Care Provider +1- [phone] Allergies No known active allergies Medications lovastatin [...] 2022 INFLUENZA VACCINE (#1) 2024 Care Teams Director Of Maternity Services Relationship Specialty Start Date End Date Carla Campbell MD PCP - General Family Practice 09/06/19
== END 2024-09-28 10:53 | disposition home or self-care (01) ==
PROVIDERS: PCP Family Medicine; Visit Provider Physician Assistant
DX: I65.23 Occlusion and stenosis of bilateral carotid arteries (principal); R09.89 Other specified symptoms and signs involving the circulatory and respiratory systems
CPT/HCPCS: 93880

== ENCOUNTER 2024-09-29 13:50 | Emergency (ER) | payer OTHER, SELFPAY ==
--- NOTE | ~2024-09-29 | XR_ITS ---
3 VIEWS LUMBAR SPINE Ordering provider: Justin Carroll APRN History: . fall yesterday, pain . Comparison: August 22, 2021 FINDINGS: VERTEBRAL BODIES: No visible fracture or subluxation. Degenerative changes of the spine. DISK SPACES: Narrowing of the disc L5-S1. Multilevel facet joint disease. SOFT TISSUES: Atherosclerotic changes of the aorta. IMPRESSION: No acute osseous abnormality lumbar spine. Reviewed, dictated and finalized at location A.
--- NOTE | ~2024-09-29 | XR_ITS ---
XR humerus RT Ordering provider: Justin Carroll APRN History: . fall yesterday, pain . Comparison: September 29, 2024 FINDINGS: BONES: No acute fracture or dislocation. JOINT SPACES: Normal. SOFT TISSUES: Normal. IMPRESSION: No acute osseous abnormality right humerus. Reviewed, dictated and finalized at location A.
--- NOTE | ~2024-09-29 | XR_ITS ---
EXAMINATION: XR shoulder RT min 2V DATE: 09/29/2024 14:47 INDICATION: Left shoulder pain post fall TECHNIQUE: AP internally and externally rotated, AP oblique externally rotated and transscapular Y vi ews of the left shoulder were obtained. COMPARISON: None FINDINGS: Old healed clavicle deformity at the junction the medial and mid thirds. There is an acute minimally displaced fracture at the lateral third of the right clavicle. Normal alignment and relatively preser hazel joint space at the right glenohumeral and acromioclavicular joints. Mild linear discoid atelectas is in the right midlung zone. No evident pleural effusion or pneumothorax. [facility] IMPRESSION: Minimally displaced acute fracture of the lateral third of the right clavicle with additional old fra cture deformity at the junction of the medial and mid thirds. Reviewed, dictated and finalized at location B. IMPRESSION: Minimally displaced acute fracture of the lateral third of the right clavicle w ith additional old fracture deformity at the junction of the medial and mid thi rds.
[2024-09-29 14:06] VITALS: BP 146/76; PULSE 76; RESP 16; TEMP 36.3; O2SAT 98
--- NOTE | 2024-09-29 15:05 | ED.UPPEXIN ---
HPI - Extremity Injury (Upper) General Chief Complaint: Extremity Injury, Upper Stated Complaint: FALL Time Seen by Provider: 09/29/24 14:20 Source: patient and RN notes reviewed Mode of arrival: ambulatory Limitations: no limitations History of Present Illness HPI narrative: 79-year-old female presents to the [facility] complaining of a fall yesterday. Patient states yesterday she was at her doctor's office when she was walking up a large step and lost her balance and fell to the ground. She says the step stent have any railing she normally uses a railing to help her walk up steps. She denies any loss of consciousness but states she did hit the back of her head while she fell. Patient says she remembers the fall. She denies any head neck or back pain. She is complaining right shoulder pain and bruising. She says the pain in her shoulders worse with movement. She says she only takes a baby aspirin no other blood thinning agents. Patient denies any headache, dizziness, focal weakness, slurred speech, numbness, tingling, chest pain, or shortness of breath. Patient denies any other injury. Related Data Home Medications ?Medication ?Instructions ?Recorded ?Confirmed ?Last Taken ?Type aspirin 81 mg tablet,delayed 81 mg PO DAILY 08/13/19 09/21/24 Unknown History release (Adult Aspirin Regimen) calcium carbonate-vitamin D3 PO 08/13/19 09/21/24 Unknown History cetirizine [Zyrtec] PO 08/13/19 09/21/24 Unknown History guar gum [Benefiber (guar gum)] PO 08/13/19 09/21/24 Unknown History lactobacillus combination no.8 PO 08/13/19 09/21/24 Unknown History [Adult Probiotic] magnesium 250 mg tablet 250 mg PO DAILY 08/13/19 09/21/24 Unknown History melatonin 10 mg capsule PO 08/13/19 09/21/24 Unknown History multivitamin 1 tablet PO DAILY 08/13/19 09/21/24 Unknown History omega-3 fatty acids 1,000 mg 1,000 mg PO DAILY 08/13/19 09/21/24 Unknown History capsule (Fish Oil Concentrate) vit C-E-zinc [id number] PO 08/13/19 09/21/24 Unknown History [Formerly [facility]] Allergies Allergy/AdvReac Type Severity Reaction Status Date / Time No Known Allergies Allergy Verified 09/29/24 13:57 Review of Systems Review of Systems: CONSTITUTIONAL: Denies fever, chills, or sweats. EYES: Denies visual changes, redness, or discharge. ENT: Denies rhinorrhea, congestion, sore throat, or otalgia. CARDIOVASCULAR: Denies chest pain, palpitations, syncope, lightheadedness, or edema. RESPIRATORY: Denies cough or dyspnea. GASTROINTESTINAL: Denies abdominal pain, nausea, vomiting, or diarrhea. GENITOURINARY: Denies dysuria or hematuria. SKIN: Denies rash or itching. MUSCULOSKELETAL: Denies back pain or myalgia. Positive for right shoulder pain. NEUROLOGIC: Denies headache, slurred speech, dysphagia, dizziness, numbness, or weakness. PSYCHIATRIC: Denies anxiety or depression. All other systems reviewed are negative, except as documented in HPI. [facility] Past Medical History Medical History Left wrist sprain COPD (chronic obstructive pulmonary disease) Cerebral atherosclerosis Carotid atherosclerosis Seasonal allergies Osteoporosis Vision abnormalities Vertigo Dizziness Peripheral neuropathy Chronic GERD Essential (primary) hypertension Meniere's disease of both ears Mixed hyperlipidemia Neuropathy History of breast cancer Surgical History Surgical History History of tubal ligation 1974 History of right total mastectomy Family History Family History Sibling Acute myocardial infarction Hypertension Other Family history of cardiovascular disease Social History Social History Social History: Smoking packs per day: 2.5 Smoking cigarettes per day: 50.0 Years smoked: 40 Smoking pack-years: 100.00 Smoking status: Never smoker Tobacco type: cigarettes Second hand tobacco smoke exposure: No Smoking end date: 06/23/04 Alcohol intake: never Substance use: never Substance use type: does not use Living arrangements: with family Occupation/Education: retired 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 There is no relevant family history pertinent to the patient complaint. Exam Narrative: GENERAL: This is a well-nourished, well-developed adult, in no apparent distress. They are non ill-appearing, nontoxic appearing. HEAD: normocephalic, atraumatic. EYES: Sclera clear/white. Vision is grossly intact. Extraocular movements intact. Conjunctivae normal. Pupils PERRLA EARS: External ears normal, auditory canals clear and without drainage, TMs normal without perforation. Hearing grossly intact. No hemotympanum bilaterally. NOSE: External nose normal with no obvious nasal discharge, nasal turbinates pink and moist, without exudate, bleeding, or abnormal discharge no rhinorrhea. THROAT: Mucous membranes moist, posterior pharynx clear. Uvula midline. Good dentition. No missing teeth. NECK: Neck supple, non-tender without lymphadenopathy, masses or thyromegaly. No cervical point tenderness, no crepitus. No pain with full range of motion of the patient's cervical spine her head. CARDIOVASCULAR: Regular rate and rhythm without murmurs, gallops, or rubs. RESPIRATORY: Clear to auscultation. Breath sounds equal bilaterally. No wheezes, rales, or rhonchi. SKIN: warm, Dry, intact with no suspicious lesions or rash, good texture and turgor. NEURO: awake, alert, and oriented to person, place and time. There were no obvious focal neurologic abnormalities. EXTREMITIES: Right shoulder: No obvious deformity or swelling to the right shoulder. There is bruising present to the posterior lateral side of the right humerus extending up to the shoulder. There is pain with abduction greater than 90? or when she places her hand above her head. No pain with elbow flexion or extension, pronation, or supination. Radial pulses 2+ and palpable. Capillary refills less than 2 seconds. Neurovascular status is intact distal to the injury. BACK: Normal range of motion, no pain with movement in her back. There is lumbar point tenderness to palpation, no crepitus. No thoracic point tenderness or crepitus. No bruising or swelling. No CVA tenderness. Course Course Level of Care: Express Care Visit Vital Signs Vital signs: Vital Signs Temperature 97.3 F L 09/29/24 14:06 Pulse Rate 76 09/29/24 14:06 Respiratory Rate 16 09/29/24 14:06 Blood Pressure 146/76 H 09/29/24 14:06 Pulse Oximetry 98 09/29/24 14:06 Temperature 97.3 F L 09/29/24 14:06 Pulse Rate 76 09/29/24 14:06 Respiratory Rate 16 09/29/24 14:06 Blood Pressure 146/76 H 09/29/24 14:06 Pulse Oximetry 98 09/29/24 14:06 Reviewed Procedures Orthopedic Splinting/Casting Injury #1: Splinting/Casting Date: 09/29/24 Splinting/Casting Time: 15:26 Side: right Upper Extremity Injury Location: shoulder Upper Extremity Immobilizer: sling/shoulder immobilizer Pre-Procedure Neuro Vascular Exam: normal Post-Procedure Neuro Vascular Exam: normal MDM - Extremity Injury (Upper) MDM Narrative Medical decision making narrative: X-ray of her lumbar spine in her right humerus were unremarkable for any acute findings or fracture. There is a minimally displaced fracture of her clavicle to her right shoulder. Sling was applied to patient's right arm. Patient to follow-up with ortho for further evaluation and treatment. Although patient hit her head she is not taking any anticoagulants. She did not lose consciousness patient remembers falling. No significant mechanism of injury. She is not exhibiting any neurological deficits or symptoms. Neuro exam was unremarkable. Patient's fall also occurred more than 24 hours ago. This facility does not have CT capabilities. Strict ED precautions were discussed if she develops symptoms. Anticipatory guidance given. Pt is appropriate for outpt treatment and f/u. Differential Diagnosis Differential diagnosis: Likely other (Head injury, humerus fracture, shoulder dislocation, shoulder fracture, clavicle fracture) Imaging Data Radiologist's impression: FINDINGS: Old healed clavicle deformity at the junction the medial and mid thirds. There is an acute minimally displaced fracture at the lateral third of the right clavicle. Normal alignment and relatively preserved joint space at the right glenohumeral and acromioclavicular joints. Mild linear discoid atelectasis in the right midlung zone. No evident pleural effusion or pneumothorax. Surgical clips at the right axilla.. IMPRESSION: Minimally displaced acute fracture of the lateral third of the right clavicle with additional old fracture deformity at the junction of the medial and mid thirds. FINDINGS: VERTEBRAL BODIES: No visible fracture or subluxation. Degenerative changes of the spine. DISK SPACES: Narrowing of the disc L5-S1. Multilevel facet joint disease. SOFT TISSUES: Atherosclerotic changes of the aorta. IMPRESSION: No acute osseous abnormality lumbar spine. FINDINGS: BONES: No acute fracture or dislocation. JOINT SPACES: Normal. SOFT TISSUES: Normal. IMPRESSION: No acute osseous abnormality right humerus. Critical Care Time Critical Care Time Critical Care Time: No Discharge Plan Discharge Clinical Impression: Fracture, clavicle Qualifiers: Encounter type: initial encounter Clavicle location: lateral end Fracture type: closed Fracture alignment: displaced Laterality: right Qualified Code(s): S42.031A - Displaced fracture of lateral end of right clavicle, initial encounter for closed fracture Fall Qualifiers: Encounter type: initial encounter Qualified Code(s): W19.XXXA - Unspecified fall, initial encounter Patient Disposition: Home Condition: Stable Instructions: Clavicle Fracture (ED) Additional Instructions: Please wear the sling at all times. You may take it off to shower. You may ice or apply heat to the clavicle. He may take Tylenol as needed for pain. Follow-up with orthopedist in 3-5 days for further evaluation. Please go to the ER if you develop any worsening symptoms such as headaches, blurry vision, vision changes, weakness, and increased lethargy, vomiting or any other concerns. Patient Language: Sinhala Prescriptions: No Action meclizine 25 mg tablet 25 mg PO TID Qty: 60 0RF amlodipine [Norvasc] 5 mg tablet 5 mg PO DAILY Qty: 90 1RF gabapentin 600 mg tablet See Rx Instructions .ROUTE .COMPLEX Qty: 360 2RF Dose Instruction: TAKE 1 TABLET BY MOUTH FOUR TIMES A DAY Rx Instructions: TAKE 1 TABLET BY MOUTH FOUR TIMES A DAY omeprazole 20 mg capsule,delayed release(DR/EC) See Rx Instructions .ROUTE .COMPLEX Qty: 180 2RF Dose Instruction: TAKE 1 CAPSULE BY MOUTH TWICE A DAY Rx Instructions: TAKE 1 CAPSULE BY MOUTH ONCE A DAY melatonin 10 mg capsule PO Patient Comments: per patient home medication list multivitamin Tablet 1 tablet PO DAILY cetirizine [Zyrtec] PO Patient Comments: per patient home medication list calcium carbonate-vitamin D3 PO aspirin [Adult Aspirin Regimen] 81 mg tablet,delayed release (DR/EC) 81 mg PO DAILY Patient Comments: per patient home medication list vit C-E-zinc [id number] [[facility]] PO omega-3 fatty acids [Fish Oil Concentrate] 1,000 mg capsule 1,000 mg PO DAILY guar gum [Benefiber (guar gum)] PO lactobacillus combination no.8 [Adult Probiotic] PO magnesium 250 mg tablet 250 mg PO DAILY Patient Comments: per patient home medication list lovastatin 40 mg tablet See Rx Instructions .ROUTE .COMPLEX Qty: 100 0RF Dose Instruction: TAKE 1 TABLET BY MOUTH EVERY DAY Rx Instructions: TAKE 1 TABLET BY MOUTH EVERY DAY losartan 100 mg tablet See Rx Instructions .ROUTE .COMPLEX Qty: 90 1RF Dose Instruction: TAKE 1 TABLET BY MOUTH EVERY DAY Rx Instructions: TAKE 1 TABLET BY MOUTH EVERY DAY sertraline 50 mg tablet See Rx Instructions .ROUTE .COMPLEX Qty: 90 2RF Dose Instruction: TAKE 1 TABLET BY MOUTH EVERY DAY Rx Instructions: TAKE 1 TABLET BY MOUTH EVERY DAY azelastine 137 mcg (0.1 %) spray,non-aerosol See Rx Instructions .ROUTE .COMPLEX Qty: 90 0RF Dose Instruction: USE 1 SPRAY EVERY 12 HOURS ADMINISTER INTO EACH NOSTRIL Rx Instructions: USE 1 SPRAY EVERY 12 HOURS ADMINISTER INTO EACH NOSTRIL famotidine 20 mg tablet See Rx Instructions .ROUTE .COMPLEX Qty: 100 3RF Dose Instruction: TAKE 1 TABLET BY MOUTH EVERY DAY Rx Instructions: TAKE 1 TABLET BY MOUTH EVERY DAY Trelegy Ellipta 100-62.5-25 mcg blister with device See Rx Instructions .ROUTE .COMPLEX Qty: 60 2RF Dose Instruction: INHALE 1 PUFF BY MOUTH EVERY DAY Rx Instructions: INHALE 1 PUFF BY MOUTH EVERY DAY Follow-up/Referrals: Nikolas Bonilla MD [Primary Care Provider] - Maverick Rodriguez MD [Physician] - 3 Days (Minimally displaced clavicle fracture) Stand Alone Forms: Work/School Release IP Time of Disposition: 15:29
== END 2024-09-29 15:32 | disposition home or self-care (01) ==
PROVIDERS: PCP Family Medicine
DX: S42.031A Displaced fracture of lateral end of right clavicle, initial encounter for closed fracture (principal); W10.9XXA Fall (on) (from) unspecified stairs and steps, initial encounter; M54.50 Low back pain, unspecified; Z87.891 Personal history of nicotine dependence; J44.9 Chronic obstructive pulmonary disease, unspecified; I67.2 Cerebral atherosclerosis; I10 Essential (primary) hypertension; M81.0 Age-related osteoporosis without current pathological fracture; G62.9 Polyneuropathy, unspecified; K21.9 Gastro-esophageal reflux disease without esophagitis; H81.03 Meniere's disease, bilateral; E78.2 Mixed hyperlipidemia; Z85.3 Personal history of malignant neoplasm of breast; Z90.11 Acquired absence of right breast and nipple; Z79.82 Long term (current) use of aspirin
CPT/HCPCS: 72100; 73030; 73060; 99214; A4565; G0463